=== PATIENT | female | born 1995 | race Caucasian/White ===

== ENCOUNTER 2017-10-07 14:53 | Emergency (ER) | payer SELFPAY ==
[2017-10-07] MEDS ORDERED: ONDANSETRON 4 MG TAB.RAPDIS PO ONE (14:56)
[2017-10-07] MEDS ORDERED: ONDANSETRON 4 MG TAB.RAPDIS ONE (14:57)
[2017-10-07] MEDS ORDERED: ONDANSETRON HCL/PF 2 MG/ML VIAL ONE (14:57)
[2017-10-07] MEDS ORDERED: METOCLOPRAMIDE HCL 5 MG/ML VIAL IV ONE (15:02)
[2017-10-07] MEDS ORDERED: diphenhydrAMINE HCL 50 MG/ML VIAL IV ONE (15:02)
[2017-10-07] MEDS ORDERED: NORMAL SALINE 1,000 ML IV ONE (15:02)
[2017-10-07] MEDS ORDERED: diphenhydrAMINE HCL 50 MG/ML VIAL ONE (15:11)
[2017-10-07] MEDS ORDERED: METOCLOPRAMIDE HCL 5 MG/ML VIAL ONE (15:11)
--- NOTE | 2017-10-07 15:12 | ERNOTE ---
Abdominal HPI - General Chief Complaint: Abdominal Pain Time Seen by Provider: 10/07/17 14:56 Source: patient Exam Limitations: no limitations - Immun/Allergies/Home Medications Immunizatons: IMMUNIZATION HX Immunizations Up to Date Yes History of Influenza Vaccine No Hx Pneumococcal Vaccination No Allergies/Adverse Reactions: Allergies prochlorperazine [From Compazine] Allergy (Intermediate, Verified 06/03/16 15:09 ) Swelling of Throat prochlorperazine edisylate [From Compazine] Allergy (Intermediate, Verified 15:09) Swelling of Throat prochlorperazine maleate [From Compazine] Allergy (Intermediate, Verified 15:09) Swelling of Throat ketorolac tromethamine [From Toradol] Adverse Reaction (Verified 02/29/16 14:01) tramadol Adverse Reaction (Verified 02/29/16 14:01) Home Medications: HOME MEDICATIONS Promethazine HCl [Phenergan] 25 mg PO QID PRN #30 tab 02/29/16 [Last Taken 06/03 14:00] Venlafaxine HCl [Effexor] 75 mg PO DAILY 06/03/16 [Last Taken Unknown] Ondansetron [Zofran Odt] 4 mg PO Q6H PRN #20 tab 10/07/17 [Last Taken Unknown] - History of Present Illness Narrative: Patient was discharged from [facility] 2 days ago where she was admitted for pain secondary to ruptured ovarian cyst. While the patient was there she had some nausea and vomiting secondary to the pain and returns today with continuing pain and nausea and vomiting. Timing: intermittent Quality: moderate Activities at Onset: none Modifying Factors - (Improves): Present: analgesics Associated Symptoms: Present: nausea, vomiting Prior Abdominal Problems: Present: similar symptoms Prior Treatment: Present: recently seen, treated by physician, recently hospitalized Review of Systems - Review of Systems Constitutional: Present: See HPI EYE: Present: no symptoms reported ENT: Present: no symptoms reported Respiratory: Present: no symptoms reported Cardiology: Present: no symptoms reported Gastrointestinal/Abdominal: Present: See HPI Genitourinary: Present: no symptoms reported Musculoskeletal: Present: no symptoms reported Skin: Present: no symptoms reported Neurological: Present: no symptoms reported Endocrine: Present: no symptoms reported Hematologic/Lymphatic: Present: no symptoms reported Psych: Present: no symptoms reported - Patient's Past Medical History Patient History - Medical: Anxiety, Other - ovarian cysts Patient History - Cardiac/Respiratory: No pertinent hx Patient History - Cancer: No Hx of Cancer Patient History - Surgical Procedures: Appendectomy Patient History - Other: None LMP (females 10-50): other - Social History Living Situations: home Psych History: No pertinent hx - Immunizations Immunizations Up to Date: Yes Hx Pneumococcal Vaccination: No History of Influenza Vaccine: No Physical Exam - Physical Exam General Appearance: Present: wd/wn, alert, moderate distress Head Exam: Present: normal inspection, no evidence of injury Eye Exam: Normal inspection: bilateral, PERRL: bilateral Ears, Nose, Throat: Present: normal ENT inspection, H, normal pharynx Neck: Present: normal inspection, nontender Respiratory: Present: no respiratory distress, normal breath sounds, no accessory muscle use, chest nontender, lungs clear Cardiovascular/Chest: Present: no murmur, normal peripheral pulses, tachycardia Gastrointestinal/Abdominal: Present: normal bowel sounds, nondistended, soft, no organomegaly, tenderness Rectal Exam: Present: deferred Pelvic Exam: Present: deferred - patient stated that she had one just recently with a pelvic ultrasound which revealed ovarian cyst that ruptured Back Exam: Present: normal inspection, normal range of motion Extremity Exam: Present: normal inspection, non-tender, no edema, normal range of motion Neurological Exam: Present: alert, oriented, normal mood/affect Skin Exam: Present: normal color, warm/dry Lymphatic Exam: Present: no adenopathy ED Progress - Results and Orders Patient's Lab Results:: I have reviewed the patient's lab results. - Vital Signs Patient's Vital Signs:: I have reviewed the patient's vital signs. Vital Signs: Vital Signs 10/07/17 14:56 Temperature 36.6 C Pulse Rate 104 H Respiratory 17 Rate Blood Pressure 128/73 O2 Sat by Pulse 100 Oximetry - CT/Ultrasound CT/Ultrasound Narrative: Ultrasound report reviewed by me - Progress/Reassessment Chief Complaint: Abdominal Pain Progress:: Improved Plan - Plan Plan: Patient states that she has to leave not able to stay for all the results to come back. We did discuss marijuana induced vomiting syndrome and she does not believe this is what this is, and she also states she has some old Ativan at home and that's why the benzodiazepines came up positive on her urine drug screen. Patient appears to have some component of drug-seeking behavior as she stated the only thing that works for her is a liter of fluid and Dilaudid. He is a patient appeared to be in severe pain I did give her 1 mg of Dilaudid and 1 mg of Ativan but I am reluctant to give her anymore narcotics or benzodiazepines at this juncture. We also held a discussion regarding her low potassium and she states that she has chronic potassium wasting and has potassium at home that she can take there and does need wanted to stay and finish the 40 mEq of IV potassium over trying to provide for her. She stated that she would need a work note and I said I need to know what the results are before she gets a work note because if she has torsion of her ovary then that could be a surgical emergency. I will provide a prescription for Zofran ODT for her that she can use at home for her cyclical-like vomiting syndrome. Departure Clinical Impression: Abdominal pain Qualifiers: Abdominal location: left lower quadrant Qualified Code(s): R10.32 - Left lower quadrant pain Cyclic vomiting syndrome Qualifiers: Vomiting Intractability: non-intractable Nausea presence: with nausea Qualified Code(s): G43.A0 - Cyclical vomiting, not intractable - Departure Disposition: Home self-care Condition: Good Instructions: Nausea and Vomiting, Adult, [id number], Hypokalemia Prescriptions: Ondansetron [Zofran Odt] 4 mg PO Q6H PRN #20 tab PRN Reason: Nausea And Vomiting
[2017-10-07 15:18] LABS: Hematocrit 34.2 % (37.0-47.0); Hemoglobin 11.9 gm/dL (12.5-16.0); Mean Cell Volume 88.1 fl (78-100); Mean Corpuscular Hemoglobin 30.7 pg (27-31); Mean Corpuscular Hgb Conc 34.8 g/dl (32-36); Mean Platelet Volume 10.3 fl (6.0-9.5); Neutrophil # 12.6 K/mm3 (1.3-6.0); Neutrophil % 87.9 % (42-75.0); Platelet Count 259 K/mm3 (150-450); Red Blood Count 3.88 M/mm3 (4.2-5.4); White Blood Count 14.4 K/mm3 (4.0-10.5)
[2017-10-07 15:31] LABS: Albumin * 4.2 gm/dl (3.4-5.0); Anion Gap 14.3 mmol/L (6.8-13.8); BUN/Creatinine Ratio 6.3 (9.0-21.6); Bilirubin, Total 1.2 mg/dL (0.0-1.1); Ca. Corrected For Albumin 8.4 mg/dL (8.4-10.2); Calcium * 8.9 mg/dL (7.9-10.9); Carbon Dioxide 23.4 mmol/L (24-32.6); Potassium 2.7 mmol/L (3.4-4.6); Total Protein 7.6 gm/dL (6.2-8.2)
[2017-10-07] MEDS ORDERED: HYDROmorphone HCL 1 MG/ML DISP.SYRIN IV ONE (15:44)
[2017-10-07] MEDS ORDERED: LORazepam 1 MG TABLET PO ONE (15:44)
[2017-10-07] MEDS ORDERED: LORazepam 2 MG/ML DISP.SYRIN ONE (15:47)
[2017-10-07] MEDS ORDERED: HYDROmorphone HCL 2 MG/ML VIAL ONE (15:47)
[2017-10-07] MEDS ORDERED: LORazepam 2 MG/ML DISP.SYRIN IV ONE (15:50)
[2017-10-07] MEDS ORDERED: POTASSIUM CHLORIDE IN WATER 100 ML IV SCH (16:00)
[2017-10-07 16:16] LABS: Cocaine Ur Negative (NEGATIVE); Urine Barbiturate Negative (NEGATIVE); Urine Benzodiazepines Positive (NEGATIVE); Urine Opiates Negative (NEGATIVE); Urine PCP Negative (NEGATIVE); Urine THC Positive (NEGATIVE)
[2017-10-07 16:27] LABS: Urine Appearance Slightly Cloudy; Urine Bilirubin Negative (NEGATIVE); Urine Blood 10 /ul (NEGATIVE); Urine Color Yellow; Urine Ketone 50 mg/dL (NEGATIVE); Urine Protein Negative (NEGATIVE); Urine Specific Gravity 1.015 SP.GR. (1.005-1.010); Urine Urobilinogen Normal (NORMAL); Urine pH 8.5 pH (5.0-7.0)
[2017-10-07 16:28] LABS: Urine Bacteria None Seen; Urine Nitrite Negative (NEGATIVE); Urine RBC None Seen /hpf (0-5); Urine WBC 0-5 /hpf (0-5)
[2017-10-07 17:58] VITALS: BP 141/71
== END 2017-10-07 17:39 | disposition left against medical advice (07) ==
LOC: ER 14:53
DX: G43.A0 Cyclical vomiting, in migraine, not intractable; R10.32 Left lower quadrant pain; Z53.29 Procedure and treatment not carried out because of patient's decision for other reasons

== ENCOUNTER 2017-10-09 14:55 | Emergency (ER) | payer SELFPAY ==
[2017-10-09] MEDS ORDERED: PROMETHAZINE HCL 50 MG/ML AMPUL IM ONE ×2 (15:37→15:38)
--- NOTE | 2017-10-09 15:47 | ERNOTE ---
Abdominal HPI - General Chief Complaint: Nausea/Vomiting Time Seen by Provider: 10/09/17 15:29 Source: patient Exam Limitations: no limitations - Immun/Allergies/Home Medications Immunizatons: IMMUNIZATION HX Immunizations Up to Date Yes History of Influenza Vaccine No Hx Pneumococcal Vaccination No Allergies/Adverse Reactions: Allergies ketorolac tromethamine [From Toradol] Allergy (Intermediate, Verified 10/09/17 16:39) Hives prochlorperazine [From Compazine] Allergy (Intermediate, Verified 10/09/17 15:09 ) Swelling of Throat prochlorperazine edisylate [From Compazine] Allergy (Intermediate, Verified 15:09) Swelling of Throat prochlorperazine maleate [From Compazine] Allergy (Intermediate, Verified 15:09) Swelling of Throat tramadol Allergy (Intermediate, Verified 10/09/17 16:39) Hives Home Medications: HOME MEDICATIONS Promethazine HCl [Phenergan] 25 mg PO QID PRN #30 tab 02/29/16 [Last Taken 06/03 14:00] Venlafaxine HCl [Effexor] 75 mg PO DAILY 06/03/16 [Last Taken Unknown] Ondansetron [Zofran Odt] 4 mg PO Q6H PRN #20 tab 10/07/17 [Last Taken Unknown] - History of Present Illness Narrative: Patient was seen her two days for abdominal pain with nausea and vomiting possibly related to an ovarian cyst (pelvic ultrasound was normal). Her symptoms resolved but restarted at 03:00 this morning. She states that she has vomited non stop, generalized abdominal pain, loose BM 2-3x per day (more or less normal for her as she has IBS). She has episodes like this 2-3 times a year. She admits to smoking THC, last about two weeks ago. Review of Systems - Review of Systems Constitutional: Absent: fever ENT: Absent: nose congestion, sore throat Cardiology: Absent: chest pain Gastrointestinal/Abdominal: Present: See HPI Genitourinary: Present: no symptoms reported Musculoskeletal: Absent: back pain Neurological: Present: headache - starting to get a migraine - Patient's Past Medical History Patient History - Medical: Anxiety, Other Patient History - Cardiac/Respiratory: No pertinent hx Patient History - Cancer: No Hx of Cancer Patient History - Surgical Procedures: Appendectomy Patient History - Other: None LMP (females 10-50): last week - Social History Living Situations: home Psych History: No pertinent hx Smoking Status: Current some day smoker Alcohol Use: rarely Drug Use: marijuana - Immunizations Immunizations Up to Date: Yes Hx Pneumococcal Vaccination: No History of Influenza Vaccine: No Physical Exam - Physical Exam General Appearance: Present: wd/wn, alert, no apparent distress, anxious Ears, Nose, Throat: Present: normal pharynx Respiratory: Present: no respiratory distress, normal breath sounds, no accessory muscle use, lungs clear Cardiovascular/Chest: Present: regular rate, rhythm, no murmur Gastrointestinal/Abdominal: Present: normal bowel sounds, nondistended, soft, tenderness - diffuse Extremity Exam: Present: no edema Neurological Exam: Present: alert, oriented, normal mood/affect Skin Exam: Present: normal color, warm/dry ED Progress - Results and Orders Patient's Lab Results:: I have reviewed the patient's lab results. - Vital Signs Patient's Vital Signs:: I have reviewed the patient's vital signs. Vital Signs: Vital Signs 10/09/17 15:06 Temperature 36.7 C Pulse Rate 95 Respiratory 15 Rate Blood Pressure 135/79 O2 Sat by Pulse 99 Oximetry - Progress/Reassessment Chief Complaint: Nausea/Vomiting Progress Note-Subjective: 10/09/17 17:04 vomiting better after phenergan, vomited just small amount, unclear whether GI cocktail stayed down asking for dilaudid or nubain for pain, discussed that I won't be able to give narcotics for this recurrent vomiting and abdominal pain 10/09/17 18:01 patient resting, no vomiting, opens eyes when talked to, requesting more IV fluids and 'something for pain', able to ambulate to bathroom without signs of discomfort 10/09/17 19:23 patient resting comfortably, ready to go home, denies any need for prescriptions at home 'I have everything I need' also has potassium pills at home Departure Clinical Impression: Cyclic vomiting syndrome Qualifiers: Vomiting Intractability: non-intractable Nausea presence: with nausea Qualified Code(s): G43.A0 - Cyclical vomiting, not intractable - Departure Disposition: Home self-care Condition: Good Instructions: Cyclic Vomiting Syndrome, Pediatric Additional Instructions: call your doctor for follow up
[2017-10-09 15:53] LABS: Hematocrit 36.6 % (37.0-47.0); Hemoglobin 12.8 gm/dL (12.5-16.0); Mean Cell Volume 88.4 fl (78-100); Mean Corpuscular Hemoglobin 30.9 pg (27-31); Mean Platelet Volume 10.2 fl (6.0-9.5); Neutrophil # 14.1 K/mm3 (1.3-6.0); Neutrophil % 92.6 % (42-75.0); Platelet Count 262 K/mm3 (150-450); Red Blood Count 4.14 M/mm3 (4.2-5.4); Red Cell Distribution Width 12.2 % (11.5-14.0); White Blood Count 15.2 K/mm3 (4.0-10.5)
[2017-10-09 15:58] LABS: Urine Bilirubin Negative (NEGATIVE); Urine Ketone 50 mg/dL (NEGATIVE); Urine Nitrite Negative (NEGATIVE); Urine Protein Negative (NEGATIVE); Urine Urobilinogen Normal (NORMAL)
[2017-10-09 16:07] LABS: Albumin * 4.5 gm/dl (3.4-5.0); Anion Gap 15.9 mmol/L (6.8-13.8); BUN/Creatinine Ratio 6.6 (9.0-21.6); Bilirubin, Total 0.9 mg/dL (0.0-1.1); Calcium * 8.7 mg/dL (7.9-10.9); Carbon Dioxide 23.8 mmol/L (24-32.6); Potassium 2.7 mmol/L (3.4-4.6); Total Protein 8.1 gm/dL (6.2-8.2)
[2017-10-09 16:12] LABS: Urine Appearance Clear; Urine Bacteria TRACE; Urine Blood 5 /ul (NEGATIVE); Urine Color Yellow; Urine RBC 0-5 /hpf (0-5); Urine WBC 0-5 /hpf (0-5)
[2017-10-09] MEDS ORDERED: NORMAL SALINE 1,000 ML IV ONE ×2 (16:12→18:02)
[2017-10-09] MEDS ORDERED: POTASSIUM CHLORIDE IN WATER 100 ML IV ONE ×2 (16:12→18:02)
[2017-10-09 16:14] LABS: Cocaine Ur Negative (NEGATIVE); Urine Barbiturate Negative (NEGATIVE); Urine Benzodiazepines Negative (NEGATIVE); Urine Opiates Negative (NEGATIVE); Urine PCP Negative (NEGATIVE)
[2017-10-09 16:15] LABS: Urine THC Positive (NEGATIVE)
[2017-10-09] MEDS ORDERED: MAG HYDROX/ALUMINUM HYD/SIMETH 30 ML UDC PO ONE (16:49)
[2017-10-09] MEDS ORDERED: BELLADONNA ALKALOIDS/PHENOBARB 60 ML BTL PO ONE (16:49)
[2017-10-09] MEDS ORDERED: LIDOCAINE HCL 20 ML UDC PO ONE (16:49)
[2017-10-09] MEDS ORDERED: diphenhydrAMINE HCL 50 MG/ML VIAL IV ONE (17:03)
[2017-10-09] MEDS ORDERED: diphenhydrAMINE HCL 50 MG/ML VIAL ONE (17:07)
[2017-10-09] MEDS ORDERED: DICYCLOMINE HCL 10 MG/ML AMPUL IM ONE ×2 (18:04→18:16)
[2017-10-09 18:48] VITALS: BP 122/67
== END 2017-10-09 20:10 | disposition home or self-care (01) ==
LOC: ER 14:55
DX: G43.A0 Cyclical vomiting, in migraine, not intractable (principal); F17.200 Nicotine dependence, unspecified, uncomplicated; Z53.29 Procedure and treatment not carried out because of patient's decision for other reasons